=== PATIENT | female | born 1950 | race Caucasian/White ===

== ENCOUNTER → 2019-11-17 11:24 | Outpatient (CLI) | payer MEDICARE, BC, SELFPAY ==
--- NOTE | ~2019-11-17 | MM_ITS ---
EXAMINATION: MM screening yue BI w eulogio HISTORY: Screening mammogram TECHNIQUE: Craniocaudal and mediolateral oblique 3-D tomosynthesis images were obtained and synthetic 2-D images were generated. CAD analysis was submitted and interpreted. COMPARISON: 10/21/2018, 10/18/2017 bilateral digital screening mammogram examinations BREAST PARENCHYMAL COMPOSITION: FINDINGS: There is stable 6 mm circumscribed opacity in the lower inner quadrant of the right breast. There is no evidence of suspicious mass, calcification, or architectural distortion to suggest malig leydi in either breast. There has been no suspicious interval change. IMPRESSION: 1. No mammographic evidence of malignancy. 2. Recommend routine screening mammography in one year. BI-RADS category 2 benign Reviewed, dictated and finalized at location A.
== END ==
PROVIDERS: PCP Physician Assistant; Visit Provider Physician Assistant
DX: Z12.31 Encounter for screening mammogram for malignant neoplasm of breast (principal)
CPT/HCPCS: 77063; 77067

== ENCOUNTER → 2019-12-18 10:24 | Outpatient (CLI) | payer MEDICARE, BC, SELFPAY ==
--- NOTE | ~2019-12-18 | DEXA_ITS ---
Bone Density Report Name: Lupe Velez Age: 69 Sex: Female Ethnicity: White Date of : 1950 Indication: osteopenia; postmenopausal Referring Provider: Ketty, Erin Miller Study: Bone densitometry was performed. Exam Date: December 18, 2019 Accession number: [id number] Bone Density: Region BMD T-score Z-score Classification AP Spine (L1-L4) 0.788 -2.4 -0.4 Osteopenia Femoral Neck (Left) 0.623 -2.0 -0.4 Osteopenia Total Hip (Left) 0.845 -0.8 0.6 Normal Femoral Neck (Right) 0.600 -2.2 -0.6 Osteopenia Total Hip (Right) 0.797 -1.2 0.2 Osteopenia Total Hip Mean 0.821 -1.0 0.4 Normal World Health Organization criteria for BMD impression classify patients as: Normal (T-score at or above -1.0), Osteopenia (T-score between -1.0 and -2.5), or Osteoporosis (T-score at or below -2.5). 10-year Fracture Risk(1): Major Osteoporotic Fracture 13% Hip Fracture 2.5% Reported Risk Factors: [place] (), Neck BMD=0.600, BMI=26.4 (1) FRAX(R) Version 3.08. Fracture probability calculated for an untreated patient. Fracture probability may be lower if the patient has received treatment. Previous Exams: Region Exam Age BMD T-score BMD Change BMD Change Date g/cm2 vs Baseline vs Previous AP Spine(L1-L4) 12/18/2019 69 0.788 -2.4 -0.107* -0.075* 01/26/2014 63 0.863 -1.7 -0.032* -0.018 09/11/2011 60 0.880 -1.5 -0.014 -0.050* 05/26/2009 58 0.930 -1.1 0.035* 0.020 05/11/2008 57 0.910 -1.2 0.015 0.039* 05/09/2007 56 0.872 -1.6 -0.023* -0.015 04/18/2006 55 0.886 -1.5 -0.008 -0.008 12/12/2004 54 0.895 -1.4 Total Hip(Left) 12/18/2019 69 0.845 -0.8 -0.179* -0.102* 01/26/2014 63 0.947 0.0 -0.076* 0.066* 09/11/2011 60 0.881 -0.5 -0.143* -0.048* 05/26/2009 58 0.929 -0.1 -0.095* -0.007 05/11/2008 57 0.936 -0.1 -0.088* 0.000 05/09/2007 56 0.936 0.0 -0.088* -0.040* 04/18/2006 55 0.976 0.3 -0.048* -0.048* 12/12/2004 54 1.024 0.7 Total Hip(Right) 12/18/2019 69 0.797 -1.2 -0.174* -0.138* 01/26/2014 63 0.934 -0.1 -0.036* 0.080* 09/11/2011 60 0.854 -0.7 -0.116* -0.056* 05/26/2009 58 0.910 -0.3 -0.060* 0.039* 05/11/2008 57 0.871 -0.6 -0.099* -0.002 05/09/2007 56 0.873 -0.6 -0.098* -0.117* 04/18/2006 55 0.989 0.4 0.019
== END ==
PROVIDERS: PCP Physician Assistant; Visit Provider Nurse Practitioner Obstetrics & Gynecology
DX: Z78.0 Asymptomatic menopausal state (principal); M85.89 Other specified disorders of bone density and structure, multiple sites
CPT/HCPCS: 77080

== ENCOUNTER → 2021-01-03 10:09 | Outpatient (CLI) | payer MEDICARE, BC, SELFPAY ==
--- NOTE | ~2021-01-03 | MM_ITS ---
EXAMINATION: MM screening [facility] BI w eulogio HISTORY: Screening mammogram TECHNIQUE: Craniocaudal and mediolateral oblique 3-D tomosynthesis images were obtained and synthetic 2-D images were generated. CAD analysis was submitted and interpreted. COMPARISON: 11/17/2019, 10/21/2018, 10/17/2017 BREAST PARENCHYMAL COMPOSITION: There are scattered areas of fibroglandular density. FINDINGS: There is no evidence of suspicious mass, calcification, or architectural distortion to sugg est malignancy in either breast. There has been no suspicious interval change. IMPRESSION: 1. No mammographic evidence of malignancy. 2. Recommend routine screening mammography in one year. BI-RADS Category 1: Negative Reviewed, dictated and finalized at location A.
== END ==
PROVIDERS: PCP Physician Assistant; Visit Provider Obstetrics & Gynecology
DX: Z12.31 Encounter for screening mammogram for malignant neoplasm of breast (principal)
CPT/HCPCS: 77063; 77067

== ENCOUNTER → 2022-04-05 14:18 | Outpatient (CLI) | payer MEDICARE, BC, SELFPAY ==
--- NOTE | ~2022-04-05 | MM_ITS ---
EXAMINATION: MM screening yue BI w eulogio HISTORY: Screening mammogram TECHNIQUE: Craniocaudal and mediolateral oblique 3-D tomosynthesis images were obtained and synthetic 2-D images were generated. CAD analysis was submitted and interpreted. COMPARISON: 01/03/2021, 11/17/2019, 10/21/2018 BREAST PARENCHYMAL COMPOSITION: There are scattered areas of fibroglandular density. FINDINGS: A stable mass of the lower inner right breast is considered benign given the lack of interv al change. No suspicious mass, calcification, or architectural distortion are identified in either br east to suggest malignancy. There has been no suspicious interval change. IMPRESSION: 1. No mammographic evidence of malignancy. 2. Recommend routine screening mammography in one year. BI-RADS Category 2: Benign finding(s). Reviewed, dictated and finalized at location A. NT SOLUTIONS MANAGER
== END ==
PROVIDERS: PCP Internal Medicine; Visit Provider Nurse Practitioner Obstetrics & Gynecology
DX: Z12.31 Encounter for screening mammogram for malignant neoplasm of breast (principal)
CPT/HCPCS: 77063; 77067

== ENCOUNTER 2022-05-22 11:51 | Outpatient (CLI) | payer MEDICARE, BC, SELFPAY ==
--- NOTE | ~2022-05-22 | MMUS_ITS ---
EXAMINATION: MM diagnostic yue RT w eulogio, US breast RT limited HISTORY: Right lower inner quadrant breast mass TECHNIQUE: Full field and spot ML, MLO and CC 3-D tomosynthesis images of the right breast were perfo rmed and synthetic 2-D images were generated. CAD analysis was submitted and interpreted. High resolu tion lower inner quadrant right breast ultrasound was performed. COMPARISON: April 05, 2022, January 03, 2021, November 17, 2019 bilateral screening mammogram examinati ons BREAST PARENCHYMAL COMPOSITION: There are scattered areas of fibroglandular density. FINDINGS: MAMMOGRAPHIC FINDINGS: Stable approximately 4 x 5 mm low-density opacity is noted at mid depth in the lower inner quadrant o f the right breast, unchanged since 11/17/2019. ULTRASOUND: Real-time scanning of the lower inner quadrant of the right breast reveals a 3.3 x 6.3 x 6.9 mm circu mscribed sonolucency at 4:00, without internal vascularity. There is through transmission. The findin gs are consistent with a small cyst or other benign process. IMPRESSION: 1. Chronic stable benign probable simple cyst, or clot 2. Routine mammographic screening is recommended BI-RADS Category 2: Benign finding(s). Reviewed, dictated and finalized at location A. RVISOR TRANSFERRING AND BOXING IMPRESSION: 1. Chronic stable benign probable simple cyst, or clot 2. Routine mammographic screening is recommended BI-RADS Category 2: Benign finding(s).
== END 2022-05-22 11:52 | disposition home or self-care (01) ==
PROVIDERS: PCP Internal Medicine; Visit Provider Nurse Practitioner Obstetrics & Gynecology
DX: R92.8 Other abnormal and inconclusive findings on diagnostic imaging of breast (principal)
CPT/HCPCS: 76642; 77061; 77065; G0279

== ENCOUNTER 2023-03-23 10:09 | Outpatient (CLI) | payer MEDICARE, BC, SELFPAY ==
--- NOTE | ~2023-03-23 | XR_ITS ---
Clinical Indication: Cough PA and lateral views of the chest: Comparison: 10/12/2016 Findings: The lungs are clear, without evidence of focal consolidation or pleural effusion. Cardiome diastinal silhouette is within normal limits. Bones and soft tissues are unremarkable. Impression: Normal chest. Reviewed, dictated and finalized at [facility]. ALING PROJECT ENGINEER Impression: Normal chest.
== END 2023-03-23 10:10 | disposition home or self-care (01) ==
PROVIDERS: PCP Physician Assistant; Visit Provider Physician Assistant
DX: R05.9 Cough, unspecified (principal)
CPT/HCPCS: 71046

== ENCOUNTER 2023-04-18 07:55 | Outpatient (CLI) | payer MEDICARE, BC, SELFPAY ==
--- NOTE | ~2023-04-18 | MM_ITS ---
EXAMINATION: MM screening [facility] BI w eulogio HISTORY: Screening TECHNIQUE: Craniocaudal and mediolateral oblique 3-D tomosynthesis images were obtained and synthetic 2-D images were generated. CAD analysis was submitted and interpreted. COMPARISON: Comparison to multiple prior studies sequentially, with oldest reviewed study dated 10/18. BREAST PARENCHYMAL COMPOSITION: There are scattered areas of fibroglandular density. FINDINGS: Stable benign-appearing mass lower inner quadrant of the right breast There is no evidence of suspicious mass, calcification, or architectural distortion to suggest malignancy in either breast . There has been no suspicious interval change. IMPRESSION: 1. No mammographic evidence of malignancy. 2. Recommend routine screening mammography in one year. BI-RADS CATEGORY 2 - BENIGN FINDINGS Reviewed, dictated and finalized at location A. ELEVATOR WORKER
== END 2023-04-18 07:56 | disposition home or self-care (01) ==
LOC: ANHIMG 08:01
PROVIDERS: PCP Physician Assistant; Visit Provider Nurse Practitioner Obstetrics & Gynecology
DX: Z12.31 Encounter for screening mammogram for malignant neoplasm of breast (principal)
CPT/HCPCS: 77063; 77067

== ENCOUNTER 2024-01-18 13:49 | Outpatient (CLI) | payer MEDICARE, BC, SELFPAY ==
--- NOTE | ~2024-01-18 | DEXA_ITS ---
Bone Density Report Name: DARREN DANIELLE Age: 73 Sex: Female Ethnicity: White Date of : 1950 Indication: postmenopausal; screening for osteoporosis; height loss; Referring Provider: MARKUS, CATA Jeffries Study: Bone densitometry was performed. Exam Date: January 18, 2024 Accession number: [id number] Bone Density: Region BMD T-score Z-score Classification AP Spine(L1-L4) 0.754 -2.7 -0.4 Osteoporosis Femoral Neck (Left) 0.562 -2.6 -0.7 Osteoporosis Total Hip (Left) 0.741 -1.6 0.0 Osteopenia Femoral Neck (Right) 0.559 -2.6 -0.7 Osteoporosis Total Hip (Right) 0.727 -1.8 -0.1 Osteopenia Total Hip Mean 0.734 -1.7 -0.1 Osteopenia World Health Organization criteria for BMD impression classify patients as: Normal (T-score at or above -1.0), Osteopenia (T-score between -1.0 and -2.5), or Osteoporosis (T-score at or below -2.5). 10-year Fracture Risk: FRAX not reported because: Some T-score for Spine Total or Hip Total or Femoral Neck at or below -2.5 Clinical Information Provided by Patient: Has used the following medications: Vitamin D Patient maximum height was 65.5 Menopause Age: 51 No regular weight bearing exercise Onset of menses at age 13 Number of children 2 Impression: The patient has osteoporosis, based on the Total Spine T-score. Discussion: INCREASED RISK OF FRACTURE. BONE DENSITY IS UNDESIRABLY LOW AT ONE OR MORE SKELETAL SITES, CONSISTENT WITH POSTMENOPAUSAL OSTEOPOROSIS. This patient's lowest T-score meets the World Health Organization's (WHO) criteria for osteoporosis at one or more sites (T-score -2.5 or below). In untreated patients, the risk of osteoporotic fracture increases approximately two-fold for each 1.0 SD decrease in T-score. Low bone density is not the only risk factor for fracture; also consider factors such as patient's age, frailty or poor health, risk of falling, risk of injury, previous osteoporotic fracture, family history of osteoporosis, cigarette smoking, low body weight, etc. Not everyone with low bone mineral density has osteoporosis; osteomalacia and other metabolic bone disorders should also be considered. Patients who have osteoporosis should be evaluated for specific diseases and conditions (secondary causes) that may cause or contribute to bone loss. The [place] [employer] Endocrinologists (AACE) and National Osteoporosis Foundation (NOF) recommend pharmacologic intervention for all postmenopausal women whose T-score is in this range. The patient should follow a healthful lifestyle (good nutrition with adequate calcium and vitamin D, and appropriate weight-bearing exercise). Follow-Up: Consider a repeat BMD and Vertebral Fracture Assessment (VFA) exam in 2 years or sooner if medically necessary, to reassess this patient's status. Kurtis
== END 2024-01-18 13:50 | disposition home or self-care (01) ==
LOC: ANHIMG 13:51
PROVIDERS: PCP Nurse Practitioner Obstetrics & Gynecology; Visit Provider Physician Assistant
DX: M85.89 Other specified disorders of bone density and structure, multiple sites (principal); M81.0 Age-related osteoporosis without current pathological fracture; Z78.0 Asymptomatic menopausal state
CPT/HCPCS: 77080

== ENCOUNTER 2024-01-21 10:52 | Outpatient (CLI) | payer MEDICARE, BC, SELFPAY ==
--- NOTE | ~2024-01-21 | XR_ITS ---
AP and lateral views of the left hip Clinical history: Pain Findings: No acute fracture or dislocation is seen. Osseous alignment is anatomic. Left hip joint is preserved. Soft tissues are unremarkable. Impression: No significant abnormality is seen. Reviewed, dictated and finalized at location M. Impression: No significant abnormality is seen.
== END 2024-01-21 10:53 | disposition home or self-care (01) ==
LOC: ANHIMG 10:58
PROVIDERS: PCP Internal Medicine; Visit Provider Internal Medicine
DX: M25.552 Pain in left hip (principal)
CPT/HCPCS: 73502

== ENCOUNTER 2024-05-10 11:31 | Outpatient (CLI) | payer MEDICARE, BC, SELFPAY ==
--- NOTE | ~2024-05-10 | MM_ITS ---
EXAMINATION: MM screening yue BI w eulogio HISTORY: Screening TECHNIQUE: Craniocaudal and mediolateral oblique 3-D tomosynthesis images were obtained and synthetic 2-D images were generated. CAD analysis was submitted and interpreted. COMPARISON: Comparison to multiple prior studies sequentially, with oldest reviewed study dated 10/21. BREAST PARENCHYMAL COMPOSITION: Not Dense: The breasts are almost entirely fatty. FINDINGS: There is no evidence of suspicious mass, calcification, or architectural distortion to sugg est malignancy in either breast. There has been no suspicious interval change. IMPRESSION: 1. No mammographic evidence of malignancy. 2. Recommend routine screening mammography in one year. BI-RADS Category 1: Negative Reviewed, dictated and finalized at location B. ICAL DOCUMENTATION CLERK
--- OUTSIDE RECORDS SUMMARY | 2024-05-10 11:36 | XMS_ITS | CONTINUITY OF CARE DOCUMENT ---
Author Name ayah poon Address Unknown Organization [facility] Address [address] [place] [address] Phone [phone] Care Team Providers Care Program Medical Director Name Role Phone Nicolás JOHNSON, Anthony Unavailable [phone] CURTIS NASH MD Unavailable [phone] INSURANCE PROVIDERS Payer name Policy type / Coverage type Valente red green party ID [facility] [id number]
--- OUTSIDE RECORDS SUMMARY | 2024-05-10 11:36 | XMS_ITS | Data Portability ---
Author Organization [facility] [place] Address [address] [place] [address] Care Team Providers Care Nocturnist Name Role Phone MARKUSCATA Primary Care Provider [phone] Assessment Encounter Date Assessment Date Assessment LastModified by Organization Details LastModified Time 12/02/2019 12/02/2019 Annual gynecological exam performed. Patient will come back in a year unless there are new symptoms. [email or web address] Not available 12/02/2019 12:06:03 12/08/2020 12/08/2020 Annual gynecological exam performed. Patient will come back in a year unless there are new symptoms. Not available 12/08/2020 11:00:37 01/03/2022 01/03/2022 Annual gynecological exam performed. Patient will come back in a year unless there are new symptoms. Not available 01/03/2022 11:13:57 Plan of Treatment Reminders Order Date Submit Date Provider Last Modified By Organization Details Last Modified Time Details Appointments None recorded. Lab None recorded. Referral None recorded. Procedures None recorded. Surgeries None recorded. Imaging DEXA, axial skeleton + vertebral fracture assessment 2019 020 [facility], [address], [address], 0 10:16:47 MAMMO, screening, digital, bilateral 2020 021 [facility], [address] [address], [place], [address], 1 10:04:17 US, pelvis, complete 2021 [address], [address], [place], [address], 17:56:52 US, pelvis 2021 022 [email or web address] [address], [address], [place], [address], 19:16:42 US, transvagina l 2021 [email or web address], [address], [place], [address], 19:16:42 Medication Orders None recorded. Patient TargetsNo targets recorded. Patient Instructions Encounter Date Encounter Id Patient Instructions Last Modified By Organization Details Last Modified Time 12/02/2019 [id number] [email or web address] Not available 12:35:34 Reason for Referral None Reported. Results Created Date Observation Date Name Description Value Unit Range Abnormal Flag Note LastModifiedBy Organization Detail LastModifiedTime 01/04/2001/03/2022 IMAGE GUIDE D PAP AND HPV REGAR DLESS image guided Pap, HPV regardless of Pap result SEE RESULT S BELOW CASE REPOR T: Cytol ogy Gynec ologi lamont Repor t Case: [id number] Autho sylvia bey Provi blane: Chetan Powell Colle cted: 01/03 1745 [employer] BIOLOGIST Order ing Locat ion: [place] Patho logy Recei disha: 01/04 1104 First Scree n: McBri de, Taylor ret, CT Speci men: Scree hollie Pap - Image d, Cervi x STATE MENT OF ADEQU ACY: Satis facto ry for evalu ation Trans forma tion zone compo nent canno t be defin itive ly ident ified due to the prese nce of atrop hy or other hormo nal self es FINAL DIAGN OSIS: Negat horacio for Intra epith elial Lesio n or Malig leydi (NIL) . Atrop hic cell patte rn. Phil lopes andrew d by Taylor Stern ret, CT on 01/10 at 11:03 AM ----- ----- ----- ----- ----- ----- ----- ----- ----- ----- ----- ----- ----- ----- ----- ----- ----- ---- HPV RESUL TS: HPV mRNA E6/E7 : No HPV mRNA Detec jeancarlos NOTE: This high risk HPV mRNA assay detec ts fourt een high- risk HPV types (16, 18, 31, 33, 35, 39, 45, 51, 52, 56, 58, 59, 66, 68) witho ut diffe renti ation . COMME NT: Note: This speci men was revie wed by a Cytot echno logis t and/o r Patho logis t (as indic ated in this repor t) after evalu ation using the Thinp rep Imagi ng Syste m. CLINI [facility] INFOR MATIO N: Menst rual Statu s: LMP (if appli cable ): Clini lamont Histo ry/Pr eviou s Pap: Type of Neopl priscila (if appli cable ): Signi fican t Clini lamont Findi ngs: Other Histo ry: Hormo manuel (if appli cable ): PAP EDUCA CAM L NOTE: The Pap Test is a scree hollie test with an inher ent false negat horacio rate. Liqui d-bas ed sampl ing may decre ase, but will not elimi chhaya, false negat horacio resul ts. A negat horacio resul t does not precl ude the prese nce and/o r devel opmen t of disea se, since the prese nce of abnor mal cells in the sampl e depen ds on the locat ion of the lesio n and sampl ing techn ique. Jermaine nued regul ar scree hollie is the best metho d of cance r preve ntion . If repor jeancarlos cytol ogic findi ng do not corre late with physi lamont and/o r histo rical findi ngs, furth er inves tigat ion is recom jen d, as clini florentino beatty nted. Not Available [facility] [address], [place], [address], 01/10/2022 12:06:17 12/24/19 20 12/18/2019 DEXA, axial skele ton + verte bral fract ure asses sment No observ ation record ed. [facility] [address], [place], [address], 12/30/2019 19:12:47 01/04/20 21 01/03/2021 MAMMO , abdulaziz arceg, digit al, bilat eral No observ ation record ed. [facility] [address], [place], [address], 01/04/2021 17:17:37 01/06/20 22 01/05/2022 US, pelvi s No observ ation record ed. [email or web address] [place] [address], [place], [address], 01/05/2022 10:29:05 01/06/20 22 01/05/2022 US, trans vagin al No observ ation record ed. [email or web address] [place] [address], [place], [address], 01/05/2022 10:29:15 01/06/20 22 01/05/2022 US, pelvi s No observ ation record ed. ANNIE Camacho [address], [place], [address], 01/10/2022 11:53:27 04/05/19 23 04/05/2022 MAMMO , scree hollie, bilat eral No observ ation record ed. [facility] [address], [place], [address], 04/11/2022 13:26:40 05/22/19 23 05/22/2022 imagi ng/di agnos tic resul t No observ ation record ed. [facility] [address] [facility] [address], [place], [address], 05/31/2022 06:55:45 01/21/20 24 01/18/2024 bone densi ty No observ ation record ed. [address] [facility] [address], [place], [address], 01/23/2024 11:33:41 Result Notes None recorded. 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 16:17:27 Screenin g for malignan t neoplasm of rectum Completed 201812/07/2020 Encounter for screening for malignant neoplasm of rectum;Pr actice ID: [id number] Wilda Moraes [facility] 16:17:[address] Concept Completed 201812/07/2020 Encntr for general adult medical exam w/o abnormal findings; Recorded Elsewhere : No Locati on: [facility] So urce: EHR Chron ic: N Practic e ID: 0001 Bill able Time: 01:00:00 PM Wilda Moraes [facility] 16:17:25 Speciali zed medical examinat ion Completed 201112/07/2020 Gynecolog ical Examinati on;Record ed Elsewhere : No Locati on: [facility] So urce: EHR Chron ic: N Practic e ID: 0001 Bill able Time: 11:30:00 AM Wilda Moraes [facility] 1 16:17:28 Screenin g for malignan t neoplasm of cervix Completed 201112/07/2020 Screening for malignant neoplasms of the cervix;Re corded Elsewhere : No Locati on: [facility] So urce: EHR Chron ic: N Practic e ID: 0001 Bill able Time: 11:30:00 AM Wilda Moraes [facility] 1 16:17:20 Body mass index 25-29 - overweig [id number] Completed 201712/07/2020 Body mass index (BMI) 25.0-25.9 , adult;Rec orded Elsewhere : No Locati on: [facility] So urce: EHR Chron ic: N Practic e ID: 0001 Bill able Time: 01:30:00 PM Wilda Moraes [facility] 1 16:17:16 Adult health examinat ion Completed 201312/07/2020 ROUTINE MEDICAL EXAM;Jam rded Elsewhere : No Locati on: [facility] So urce: EHR Chron ic: N Practic e ID: 0001 Bill able Time: 11:30:00 AM Wilda Moraes [facility] 1 16:17:14 Radiolog ic finding [id number] Completed 201512/07/2020 Oth abn and inconclus horacio findings on dx imaging of breast;Re corded Elsewhere : No Locati on: [facility] So urce: EHR Chron ic: N Practic e ID: 0001 Bill able Time: 02:24:57 PM Wilda Moraes [facility] 1 16:17:17 Disorder of bone and articula r cartilag e [id number] Completed 201312/07/2020 Osteopeni a;Recorde d Elsewhere : No Locati on: [facility] So urce: EHR Chron ic: N Practic e ID: 0001 Bill able Time: 11:00:00 AM Wilda Moraes [facility] 1 16:17:19 Screenin g for malignan t neoplasm of colon Completed 201012/07/2020 Special screening for malignant neoplasms , colon;Pra ctice ID: [id number] [facility] 16:17:22 Problem Notes None recorded. Procedures Surgical History Date Name Laterality Status Provider Name and Address Organization Details Recorded Time 01/04/20 22 Date of Last Pap Smear completed [facility] 01/07/2022 09:01:28 01/04/20 21 Date of Last Mammogram completed [facility] 01/03/2022 11:16:26 12/18/19 20 completed [facility] 12/07/2020 16:20:37 04/02/19 10 procedure on knee completed [facility] 01/07/2022 09:37:50 04/02/19 09 Date of Last Colonoscopy completed Vickie Gmaboa [facility] 12/08/2020 11:02:50 04/02/19 09 Colonoscopy completed [facility] 01/07/2022 09:37:45 04/02/18 57 tonsillectomy and adenoidectomy completed [facility] 01/07/2022 09:37:59 Imaging Results Imaging Date Name Status LastModified by Organization Details LastModified Time 12/18/2019 DEXA, axial skeleton + vertebral fracture assessment completed [facility] [address], [place], [address], 12/30/2019 19:12:47 01/03/2021 MAMMO, screening, digital, bilateral completed [facility] [address], [place], [address], 01/04/2021 17:17:37 01/05/2022 US, pelvis completed [email or web address] [place] [address], [place], [address], 01/05/2022 10:29:05 01/05/2022 US, transvaginal completed [email or web address] [address], [place], [address], 01/05/2022 10:29:15 01/05/2022 US, pelvis completed GRAFTON Janice [address], [place], [address], 01/10/2022 11:53:27 04/05/2022 MAMMO, screening, bilateral completed [facility] [address], [place], [address], 04/11/2022 13:26:40 05/22/2022 imaging/diagnost ic result completed [address], [place], [address], 05/31/2022 06:55:45 01/18/2024 bone density completed [place] [address] [facility] [address], [place], [address], 01/23/2024 11:33:41 Procedure Notes None recorded. Medical Equipment None Reported. Allergies No known drug allergies Medications Name Sig Start Date Stop Date Status Note LastModified by Organization Details LastModified Time amoxicill in 500 mg capsule TAKE 1 CAPSULE BY MOUTH EVERY 8 HOURS UNTIL GONE 01/03 completed Not Available Not Available Not Available aspirin 325 mg tablet take 1 tablet by oral route every day 02/09 completed Prescrib ed Elsewher e: Yes Loca tion: Benita [facility] odify By: sean christian DateTime : 09/11/19 12 11:30:00 AM Not Available Not Available Not Available Voltaren- XR 100 mg tablet,ex tended release take 1 tablet (100MG) by oral route every day 11/28 completed Prescrib ed Elsewher e: Yes Loca tion: Benita li [facility] odify By: billy powersunter DateTime : 09/11/19 12 11:30:00 AM Not Available Not Available Not Available Multiple Vitamin tablet take 1 tablet by oral route every day with food 01/03 completed Prescrib ed Elsewher e: Yes Loca tion: Benita li [facility] odify By: lucas gagnon DateTime : 09/11/19 12 11:30:00 AM Not Available Not Available Not Available losartan 25 mg tablet TAKE 1 TABLET BY MOUTH EVERY DAY active Not Available Not Available No t Available Vitamin D2 1,250 mcg (50,000 unit) capsule take 1 capsule by oral route every week 09/24 completed Prescrib ed Elsewher e: No Locat ion: Benita li [facility] odify By: sean Li ncounter DateTime : 02/17/20 14 09:38:39 AM Not Available Not Available Not Available Zocor 5 mg tablet take 1 tablet by oral route every day in the evening 09/10 completed Prescrib ed Elsewher e: Yes [facility] By: stefanie gagnon DateTime : 09/09/19 12 10:52:46 AM Not Available Not Available Not Available rosuvasta tin 5 mg tablet TAKE 1 TABLET BY MOUTH EVERY DAY active Not Available Not Available No t Available Calcio Inge 500 mg tablet 03/14 completed Prescrib ed Elsewher e: Yes [facility] odify By: sean powersunter DateTime : 09/11/19 12 11:30:00 AM Not Available Not Available Not Available Vitamin 01/03 completed Not Available Not Available Not Available Crestor 01/03 completed Not Available Not Available Not Available Activella 0.5 mg-0.1 mg tablet take 1 tablet by oral route every day 04/17 completed Prescrib ed Elsewher e: No Locat ion: Benita li [facility] odify By: amriaz powersunter DateTime : 03/16/20 16 01:26:55 PM Not Available Not Available Not Available Vitals Date Recorded Body height Body mass index (BMI) Body weight Provider Name and Address Organization Details Last Updated DateTime 12/08/2020 165.1 cm 26.5 kg/m2 06303.19 g Vickie Gamboa [facility] 12/08/2020 11:01:03 Date Recorded Systolic blood pressure Diastolic blood pressure Provider Name and Address Organization Details Last Updated DateTime 12/08/2020 132 mm[Hg] 80 mm[Hg] Erin Hdez, [facility] [address], [place], [address], [facility] 12/08/2020 11:20:47 Date Recorded Body height Body mass index (BMI) Body weight Provider Name and Address Organization Details Last Updated DateTime 01/03/2022 163.83 cm 26 kg/m2 01234.22 g Wilda Moraes [facility] 01/03/2022 11:14:36 Date Recorded Systolic blood pressure Diastolic blood pressure Provider Name and Address Organization Details Last Updated DateTime 01/03/2022 122 mm[Hg] 80 mm[Hg] Erin Hdez, [facility] [address], [place], [address], [facility] 01/03/2022 11:20:59 Date Recorded Body height Body mass index (BMI) Body weight Provider Name and Address Organization Details Last Updated DateTime 01/07/2022 163.83 cm 25.9 kg/m2 14536.63 g Ramonita Guerin [facility] 01/07/2022 09:36:02 Date Recorded Systolic blood pressure Diastolic blood pressure Provider Name and Address Organization Details Last Updated DateTime 01/07/2022 126 mm[Hg] 71 mm[Hg] Erin Hdez [facility] [address], [place], [address], [facility] 01/07/2022 09:47:21 Date Recorded Body height Body mass index (BMI) Body weight Systolic blood pressure Diastolic blood pressure Provider Name and Address Organization Details Last Updated DateTime 12/02/2019 165.1 cm 26.6 kg/m2 41878.78 g 150 mm[Hg] 82 mm[Hg] Shira Ware [facility] 0 12:17:26 Social History Question Answer Notes LastModified by Organizat ion Details LastModified Time Tobacco Smoking Status Never Smoker Omar ChinoAdelitaJarvishoma delarosa, [facility] 01/07/2022 09:27:13 Do You Have An Advance Directive? Yes Information n ot available 12/08/2020 What Is Your Level Of Alcohol Consumption? Occasional Information not available 12/07/2020 How Many Years Have You Consumed Alcohol? 50 Information not available 12/08/2020 Are You Blind Or Do You Have Difficulty Seeing? No Information n ot available 12/07/2020 What Is Your Level Of Caffeine Consumption? Moderate Information not available 12/08/2020 In The 14 Days Before Symptom Onset, Have You Had Close Contact With A Laboratory-confirm ed COVID-19 While That Case Was Ill? No Information n ot available 12/08/2020 In The 14 Days Before Symptom Onset, Have You Had Close Contact With A Person Who Is Under Investigation For COVID-19 While That Person Was Ill? No Information not available 12/08/2020 Have You Been To An Area Known To Be High Risk For COVID-19? No Information not available 12/08/2020 Are You Deaf Or Do You Have Serious Difficulty Hearing? No Information not available 12/07/2020 What Type Of Diet Are You Following? REGULAR Information n ot available 12/07/2020 What Is The Highest Grade Or Level Of School You Have Completed Or The Highest Degree You Have Received? [id number] Information not available 12/08/2020 What Is Your Occupation? Retired Information not available 12/08/2020 Are There Any Guns Present In Your Home? Yes Information not available 12/08/2020 Do You Use Protection During Sex? No Information not available 12/08/2020 Do You Use Your Seat Belt Or Car Seat Routinely? Yes Information not available 12/07/2020 Do You Have Smoke And Carbon Monoxide Detectors In Your Home? Yes Information not available 12/07/2020 How Much Tobacco Do You Smoke? No Information not available 12/08/2020 Do You Feel Stressed (tense, Restless, Nervous, Or Anxious, Or Unable To Sleep At Night)? [id number] Information not available 12/08/2020 Do You Use Any Illicit Or Recreational Drugs? No Information not available 12/08/2020 Do You Use Sunscreen Routinely? Yes Information not available 12/07/2020 Have You Used IV Drugs? No Information not available 12/08/2020 Sex: Unknown Functional Status Question Answer Note LastModified by Organizat ion Details LastModified Time Do you have difficulty walking or climbing stairs? No [email or web address] Information not available 01/07/2022 Are you able to walk? YESWOREST Information not available 12/07/2020 Are you able to care for yourself? Yes [email or web address] Information not available 01/07/2022 Do you have difficulty dressing or bathing? No Information not available 01/07/2022 What is your exercise level? Occasional Information not available 12/07/2020 Mental Status None recorded. Family History Relationship Description Onset Age of this Age Resolved Age Notes LastModified by Organization Details LastModified Time Father Hyperlipidem ia [email or web address] Not available 2019 12:07:35 Mother Hyperlipidem ia [email or web address] Not available 2019 12:07:35 Medical History Condition Response Allergies (Food, seasonal, environmental ) N Other N Breast Cancer N Drug/Latex Allergies/Reactions N Blood Transfusion N Dermatologic Disorders N Lung Disease N Defects or Inherited Disease N Breast Problem N Gestational Diabetes N Hematologic disorders N Anesthesia Complications N History of STI N Deep Vein Thrombosis N Polycystic ovary syndrome N Anxiety Disorder N Autoimmune disease N Arthritis N Infertility N Polyps N Acid Reflux (GERD) N History of abnormal pap N Cancer N Stroke N Varicosities N Neurologic/Epilepsy N Endometriosis N High Cholesterol Y Headaches N Fibromyalgia N Kidney Disease N Heart Problems N Kidney or Bladder Problems N Thyroid Problems N GI Problems N Eating Disorder N Anemia N Art (IVF or FET) N Psychiatric Illness N Ovarian Cancer N Diabetes N Pulmonary (TB, Asthma) N Hepatitis/Liver Disease N No Past Medical History Y Eczema N Urinary Tract Infection N Abuse/Domestic Violence N Asthma N Trauma/Violence N Depression/ depression N Heart Disease N Pre-Eclampsia N Hypertension Y Osteoporosis N Thrombophilias N Gynecological History Statement/Question Response Abnormal Pap N Date of Last Mammogram 01/03/2021 Date of LMP 04/02/1998 On BCP's at Conception? N N Was last menstrual period normal Y STIs/STDs N HPV Vaccine N 12/18/2019 Current Control Method Menopause Age at First Child 24 If Post Menopausal, Age at Menopause 48 Date of Last Colonoscopy 04/02/2008 Sexually Active? Y Menses Monthly N Date of DEXA bone scan 12/18/2019 Age of first menstrual cycle 13 Date of Last Pap Smear 01/03/2022 Sexual Problems? N LMP Unknown N Obstetrics History GPAL:G 2 P 0 0 0 2 Type Value Living 2 Total 2 Past Encounters Encounter ID Performer Location Encounter Start Date Encounter Closed Date Diagnosis/Indication Diagnosis SNOMED-CT Code Diagnosis ICD10 Code Diagnosis Note [id number] Erin Hdez [facility] [address] [address] 12/02/2019 11:53:53 12/02/2019 13:05:24 Gynecologic examination [id number] Z01.419 Take Calcium with Vitamin D 12-1500mg daily. Do monthly self breast exams. It is advised to get annual flu shot in the fall and she could obtain at [facility] or [facility] clinic. If you haven't received the Tdap vaccine in the last 10 years you should obtain one as well. Have mammogram yearly, bone density every 2-3 years and colonoscop y every 5-10 years depending on findings and history. Engage in daily exercise of low impact aerobic exercise 45-60 minutes 4-5 times weekly. Avoid tobacco and illicit drugs as well as using moderation with alcohol intake less than 1-2 8 oz beverages daily. This lifestyle behavior pattern will lead to less health conditions and longer life span. If BMI greater than 25 weight watchers or dietary consult advised. Questions have been answered. Patient appears to understand instructio ns, but if you have any further questions call or respond to this email Mammo ordered Dexa ordered Denies issues or concerns. Pap/HPV d/c unless otherwise indicated per asccp x 51yr Neg Hx of abn pap/hpv Follows PCP for her BP. Screening for osteoporosis [id number] Z13.820 [id number] Erin Hdez [facility] [address] [address] 12/08/2020 10:21:04 12/08/2020 12:22:19 Gynecologic examination 37343351 Z01.419 Take Calcium with Vitamin D 12-1500mg daily. Do monthly self breast exams. It is advised to get annual flu shot in the fall and she could obtain at [facility] or [facility]. If you haven't received the Tdap vaccine in the last 10 years you should obtain one as well. Have mammogram yearly, bone density every 2-3 years and colonoscop y every 5-10 years depending on findings and history. Engage in daily exercise of low impact aerobic exercise 45-60 minutes 4-5 times weekly. Avoid tobacco and illicit drugs as well as using moderation with alcohol intake less than 1-2 8 oz beverages daily. This lifestyle behavior pattern will lead to less health conditions and longer life span. If BMI greater than 25 weight watchers or dietary consult advised. Questions have been answered. Patient appears to understand instructio ns, but if you have any further questions call or respond to this email Mammo ordered Dexa 2020 osteopenia (labs done at PCP all wnl) Denies issues or concerns. Pap/HPV d/c unless otherwise indicated per asccp x 51yr Neg Hx of abn pap/hpv Follows PCP for her BP. Screening mammography 24 179062 Z12.31 [id number] Erin Hdez [facility] [address] [address] 01/03/2022 10:41:44 01/03/2022 11:36:46 Gynecologic examination 96624789 Z01.419 Take Calcium with Vitamin D 12-1500mg daily. Do monthly self breast exams. It is advised to get annual flu shot in the fall and she could obtain at [facility] or [facility]. If you haven't received the Tdap vaccine in the last 10 years you should obtain one as well. Have mammogram yearly, bone density every 2-3 years and colonoscop y every 5-10 years depending on findings and history. Engage in daily exercise of low impact aerobic exercise 45-60 minutes 4-5 times weekly. Avoid tobacco and illicit drugs as well as using moderation with alcohol intake less than 1-2 8 oz beverages daily. This lifestyle behavior pattern will lead to less health conditions and longer life span. If BMI greater than 25 weight watchers or dietary consult advised. Questions have been answered. Patient appears to understand instructio ns, but if you have any further questions call or respond to this email Pap/hpv sent (preferenc e) STD Screen declined Genetic Screen discussed Colon Screen PCP Dexa Screen PCP Routine Labs PCPMammo ordered Pain in pelvis [id number] R10.2 Left sided pelvic pain on exam & a few days last week randomFeel ing fine today Patient is to contact office or go to nearest ED/Urgent care if fever >/= 100.1, pain, excessive bleeding, unusual drainage or swelling in area of concern; or experienci ng worsening sx's or new onset of concerning sx's. Understand ing verbalized . All questions answered to patient satisfacti on. [id number] Nidia Hebert [place] [address] [address] 01/05/2022 09:13:54 01/05/2022 10:10:46 Pain in pelvis [id number] R10.2 [id number] Erin Hdez [facility] [address] [address] 01/07/2022 09:26:59 01/07/2022 09:59:58 Pain in pelvis [id number] R10.2 US reviewedUn burt bey verbalized No symptomsIs sues appear to have resolved.W ill monitor & call for updated US if sx's return while she is feeling the sx's. Time spent in visit is a total of 15 mins with at least 50% of visit consisting of counseling and review of plan of care. Health Concerns Section Related Observation LastModified by Organization Detai ls LastModified Time None Recorded Concern Status LastModified by Organization Details LastModified Time None Recorded Advance Directives Directive Y: Payers Encounter Date Sequence Insurance Name Policy Number Policy Nobles Covered Member ID Nobles Member ID Guarantor Name 12/02/2019 1 [place] Lupe C Abert [id number] Lupe C Abert 12/08/2020 1 [place] Lupe C Abert [id number] Lupe C Abert 12/08/2020 2 [place] [id number] Lupe C Abert [id number] Lupe C Abert 01/03/2022 1 [place] Lupe C Abert [id number] Lupe C Abert 01/03/2022 2 [place] [id number] Lupe C Abert [id number] Lupe C Abert 01/05/2022 1 [place] Lupe C Abert [id number] Lupe C Abert 01/05/2022 2 [place] 106 Lupe C Abert [id number] Lupe C Abert 01/07/2022 1 [place] Lupe C Abert [id number] Lupe C Abert 01/07/2022 2 [place] 106 Lupe C Abert [id number] Lupe C Abert Notes Date Note Type Note Provider Name and Address Organization Details Recorded Time 0 text/html Annual GYNReported bypatient.History:no gynecologic complaints Menstrual cycle:Normal menses Urinary symptoms:No hematuria; No incontinence Vulva:No genital lesion Vagina:Normal vaginal discharge Breast:No breast pain; No breast lump; No nipple discharge Sexual complaints:No sexual complaints; No pain during intercourse; Normal libido Menopausal Symptoms:No menopausal symptoms; Normal vaginal lubrication Psychological symptoms:No depression; No anxiety; No PMDD Preventive measures:Encourage self breast examination; Encourage regular exercise; Encourage no tobacco use; Encourage regular mammograms starting age 40; Mammogram performed within the past year; Up to date on colonoscopy screening; Dexa 2013 CHARLA [address]- [address], [place], [address], [facility] 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.Menopausal Symptoms:no menopausal symptoms; normal vaginal lubrication Vaginal Bleeding:history of menopause having occurred; no history of post menopausal bleeding Urinary Symptoms:no hematuria; no incontinence; no nocturia; no urinary frequency Vulva:no genital lesion; no vulvar atrophy Vagina:normal vaginal discharge; no vaginal atrophy Breast:no breast lump; no nipple discharge; no breast pain Sexual Complaints:no sexual complaints Psychological Symptoms:no depression; no anxiety Preventive Measures:encourage regular mammograms starting age 40; encourage self breast examination; encourage regular exercise; encourage no tobacco use; needs to schedule mammogram; history of recent colonoscopy [facility] [address], [place], [address], [facility] 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.Menopausal Symptoms:no menopausal symptoms; normal vaginal lubrication Vaginal Bleeding:history of menopause having occurred; no history of post menopausal bleeding Urinary Symptoms:no hematuria; no incontinence; no nocturia; no urinary frequency Vulva:no genital lesion; no vulvar atrophy Vagina:normal vaginal discharge; no vaginal atrophy Breast:no breast lump; no nipple discharge; no breast pain Sexual Complaints:no sexual complaints Psychological Symptoms:no depression; no anxiety Preventive Measures:encourage regular mammograms starting age 40; encourage self breast examination; encourage regular exercise; encourage no tobacco use; needs to schedule mammogram; history of recent colonoscopy +pelvic pain left sideCrampingRandomNot connected with changes in GI/GUNeg AUB Erin [facility] [address], [place], [address], [facility] 01/03/2022 11:33:12 2 text/html Here today for review of US. Erin Hdez [facility] [address], [place], [address], [facility] 01/07/2022 09:48:59 OBGyn Episode Ob Episode Information Episode Created Date Number of Fetuses Patient Bloodtype Patient rh Status Prepregnancy Weight lbs Domestic Partner Domestic Partner Phone Father Name Merchandise Deliverer Status 12/02/19 20 1 CLOSED Fetus Data First Name Last Name Admitted to NICU Weight (g) Sex Living Outcome Pediatric Complications Fetus ID Race Codes Race Delivery Type 3572.03 7 M Full Term 4206 Vaginal Delivery Jamin Calculation Initial Jamin Date Initial Exam Date Initial Exam Provider Initial Ultrasound Date Last Menstrual Period Date Ultra Sound Weeks Gestation 0 Eighteen To Twenty Week Jamin Update Ultra Sound Date Fundal Height At Umbil Quickening Date Ultra Sound Latest Weeks Gestation Final Jamin Confirmed By Final Jamin Confirmed Date Final Jamin Date Ultra Sound Latest Days Gestation 0 0 Menstrual History Last Menstrual Date Menses Monthly On Bcp Conception Prior Menses Frequency Hcg Plus Date Menarche Onset Age Delivery Information Delivery Date Delivery Type Labor Anesthesia Weeks Gestation Incision Type Labor Labor Length Hrs Delivered By Post Complications Tubal Sterilization Discharge Date Comments 9 40 Discharge Information Feeding Method Contraceptive Method Maternal HG B and HCT Levels Ob Episode Information Episode Created Date Number of Fetuses Patient Bloodtype Patient rh Status Prepregnancy Weight lbs Domestic Partner Domestic Partner Phone Father Name Merchandise Deliverer Status 12/02/19 20 1 CLOSED Fetus Data First Name Last Name Admitted to NICU Weight (g) Sex Living Outcome Pediatric Complications Fetus ID Race Codes Race Delivery Type 3968.93 M Full Term 4207 Vaginal Delivery Jamin Calculation Initial Jamin Date Initial Exam Date Initial Exam Provider Initial Ultrasound Date Last Menstrual Period Date Ultra Sound Weeks Gestation 0 Eighteen To Twenty Week Jamin Update Ultra Sound Date Fundal Height At Umbil Quickening Date Ultra Sound Latest Weeks Gestation Final Jamin Confirmed By Final Jamin Confirmed Date Final Jamin Date Ultra Sound Latest Days Gestation 0 0 Menstrual History Last Menstrual Date Menses Monthly On Bcp Conception Prior Menses Frequency Hcg Plus Date Menarche Onset Age Delivery Information Delivery Date Delivery Type Labor Anesthesia Weeks Gestation Incision Type Labor Labor Length Hrs Delivered By Post Complications Tubal Sterilization Discharge Date Comments 6 40 Discharge Information Feeding Method Contraceptive Method Maternal HG B and HCT Levels
== END 2024-05-10 11:32 | disposition home or self-care (01) ==
LOC: ANHIMG 11:34
PROVIDERS: PCP Internal Medicine; Visit Provider Nurse Practitioner Obstetrics & Gynecology
DX: Z12.31 Encounter for screening mammogram for malignant neoplasm of breast (principal)
CPT/HCPCS: 77063; 77067